=== PATIENT | female | born 1975 | race Caucasian/White ===

== ENCOUNTER 2018-07-10 06:25 | Observation (INO) | payer OTHER ==
[~2018-07-10] VITALS: Ht 167.6 cm; Wt 67.6 kg
[2018-07-10 07:33] VITALS: BP_SYST 105
== END 2018-07-10 15:04 | disposition home or self-care (01) ==
LOC: SPU 06:25
PROVIDERS: ADMIT Specialist; ATTEND Specialist
DX: O62.9 Abnormality of forces of labor, unspecified (principal); Z3A.37 37 weeks gestation of pregnancy
CPT/HCPCS: 59025; 81002-TC; G0378

== ENCOUNTER 2018-07-21 06:19 | Inpatient (IN) | payer OTHER ==
[~2018-07-21] VITALS: Ht 167.6 cm; Wt 68.0 kg
[2018-07-21] MEDS ORDERED: LR 1,000 ML IV SCH ×2 (06:25→09:21)
[2018-07-21] MEDS ORDERED: CLINDAMYCIN 600 mg/50mL D5W 50 ML IV ONE (06:30)
[2018-07-21 07:07] VITALS: BP_SYST 96
[2018-07-21 07:18] LABS: BASOPHILS % (AUTO) 0.6 % (0.0-2.0); HEMATOCRIT 27.8 % (36-48); HEMOGLOBIN 9.5 g/dL (12.0-16.0); LYMPHOCYTES # (AUTO) 1.5 K/uL (1.0-5.5); LYMPHOCYTES % (AUTO) 35.9 % (20.5-51.5); MEAN CORPUSCULAR HEMOGLOBIN 32 pg (27-31); MEAN CORPUSCULAR HGB CONC 34 % (32-36); MEAN CORPUSCULAR VOLUME 95 fL (79.0-98.0); MONOCYTES # (AUTO) 0.6 K/uL (0.0-1.0); MONOCYTES % (AUTO) 13.6 % (1.7-9.3); NEUTROPHILS % (AUTO) 48.9 % (40.0-70.0); PLATELET COUNT (AUTO) 183 K/uL (130-430); RED BLOOD CELL COUNT(AUTO) 2.92 MIL/uL (4.2-6.2); RED CELL DISTRIBUTION WIDTH 11.8 % (9.0-15.0); WHITE BLOOD COUNT (AUTO) 4.1 K/uL (4.8-10.8)
[2018-07-21] MEDS ORDERED: OXYTOCIN/0.9 % SODIUM CHLORIDE 20 UNITS/1,000 ML BAG IV ONE (07:50)
[2018-07-21] MEDS ORDERED: MORPHINE SULFATE 10MG/10ML PF AMP EP ONE (07:50)
[2018-07-21] MEDS ORDERED: NS IRRIG SOLN 1000 ML IR ONE (07:50)
[2018-07-21] MEDS ORDERED: ePHEDrine sulfate 50 MG/ML VIAL IVP ONE (07:50)
[2018-07-21] MEDS ORDERED: LR 1,000 ML IV.SOLN IV ONE (07:50)
[2018-07-21] MEDS ORDERED: CLINDAMYCIN 900 mg/50mL D5W 50 ML IV ONE ×3 (07:58→20:14)
[2018-07-21] MEDS ORDERED: KETOROLAC TROMETHAMINE 60 MG/2 ML VIAL IM PRN (08:30)
[2018-07-21] MEDS ORDERED: ONDANSETRON HCL 4 MG/2 ML VIAL IVP PRN (08:30)
[2018-07-21] MEDS ORDERED: NALOXONE HCL 0.4 MG/ML AMP (NARCAN) IVP PRN ×2 (08:30)
[2018-07-21] MEDS ORDERED: MORPHINE SULFATE 10MG/10ML PF AMP SP SCH (08:30)
[2018-07-21] MEDS ORDERED: NALBUPHINE HCL 10 MG/ML AMP IVP PRN (08:30)
[2018-07-21] MEDS ORDERED: fentaNYL CITRATE/PF 100 MCG/2 ML AMP IVP PRN ×2 (08:30)
[2018-07-21] MEDS ORDERED: DIPHENHYDRAMINE INJ 50 MG/ML VIAL IVP PRN (08:30)
[2018-07-21 09:15] VITALS: BP_SYST 105
[2018-07-21] MEDS ORDERED: OXYTOCIN/0.9 % SODIUM CHLORIDE 1,000 ML IV SCH (09:21)
[2018-07-21] MEDS ORDERED: SENNOSIDES/DOCUSATE SODIUM 1 TAB TABLET(SENOKOT-S) PO PRN (09:30)
[2018-07-21] MEDS ORDERED: HYDROcodone/ACETAMIN 5-325 MG TAB (NORCO/ VICODIN) PO PRN (09:30)
[2018-07-21] MEDS ORDERED: DIPH-TET-PERTUS Vaccine 0.5 ML VIAL (ADACEL) I.M. PRN (09:30)
[2018-07-21] MEDS ORDERED: MEASLES,MUMPS&RUBELLA VACC/PF 12500 UNIT/0.5 ML VIAL SUBQ PRN (09:30)
[2018-07-21] MEDS ORDERED: RHO(D) IMMUNE GLOBULIN/MALTOSE 1500 UNITS/1.3 ML (WINHRO) IM PRN (09:30)
[2018-07-21] MEDS ORDERED: LANOLIN 7 GM OINT. TP PRN (09:30)
[2018-07-21] MEDS ORDERED: BISACODYL 10 MG/SUPPOSITORY RC PRN (09:30)
[2018-07-21] MEDS ORDERED: CLINDAMYCIN 600 mg/50mL D5W 50 ML IV SCH (14:00)
[2018-07-21] MEDS: KETOROLAC TROMETHAMINE 30 MG VIAL IVP SCH ×2 (17:15→18:00)
[2018-07-21] MEDS: CLINDAMYCIN 900 mg/50mL D5W 50 ML IV SCH (20:00)
[2018-07-21] MEDS ORDERED: TEMAZEPAM 15 MG CAPSULE PO PRN (21:00)
[2018-07-22] MEDS: CLINDAMYCIN 900 mg/50mL D5W 50 ML IV SCH (01:15)
[2018-07-22] MEDS: KETOROLAC TROMETHAMINE 30 MG VIAL IVP SCH ×2 (05:49)
[2018-07-22 07:05] LABS: BASOPHILS % (AUTO) 0.2 % (0.0-2.0); EOSINOPHILS # (AUTO) 0.1 K/uL (0.0-0.4); EOSINOPHILS % (AUTO) 0.8 % (0.0-4.0); HEMATOCRIT 25.2 % (36-48); HEMOGLOBIN 8.4 g/dL (12.0-16.0); LYMPHOCYTES # (AUTO) 0.8 K/uL (1.0-5.5); LYMPHOCYTES % (AUTO) 12.8 % (20.5-51.5); MEAN CORPUSCULAR HEMOGLOBIN 32 pg (27-31); MEAN CORPUSCULAR HGB CONC 33 % (32-36); MEAN CORPUSCULAR VOLUME 95 fL (79.0-98.0); MONOCYTES # (AUTO) 0.5 K/uL (0.0-1.0); NEUTROPHILS # (AUTO) 5.2 K/uL (1.8-7.7); NEUTROPHILS % (AUTO) 78.2 % (40.0-70.0); PLATELET COUNT (AUTO) 146 K/uL (130-430); RED BLOOD CELL COUNT(AUTO) 2.64 MIL/uL (4.2-6.2); RED CELL DISTRIBUTION WIDTH 11.9 % (9.0-15.0)
[2018-07-22 07:06] LABS: WHITE BLOOD COUNT (AUTO) 6.6 K/uL (4.8-10.8)
[2018-07-22] MEDS: SIMETHICONE 80 MG TAB.CHEW PO PRN ×4 (08:15→20:56)
[2018-07-22] MEDS: DOCUSATE SODIUM 100 MG CAPSULE PO PRN (08:15)
[2018-07-22] MEDS: OXYCODONE/ACETAMINOPHEN 5-325 TABLET PO PRN ×3 (08:16→20:56)
[2018-07-22] MEDS: IBUPROFEN 600 MG TABLET PO SCH ×2 (12:41→18:01)
[2018-07-23] MEDS: IBUPROFEN 600 MG TABLET PO SCH ×4 (00:26→17:43)
[2018-07-23] MEDS: OXYCODONE/ACETAMINOPHEN 5-325 TABLET PO PRN ×2 (09:32→17:44)
[2018-07-23] MEDS: SIMETHICONE 80 MG TAB.CHEW PO PRN (17:45)
[2018-07-24] MEDS: IBUPROFEN 600 MG TABLET PO SCH ×2 (06:00)
[2018-07-24] MEDS: DOCUSATE SODIUM 100 MG CAPSULE PO PRN (07:57)
[2018-07-24] MEDS: OXYCODONE/ACETAMINOPHEN 5-325 TABLET PO PRN (07:58)
[2018-07-24] MEDS: SIMETHICONE 80 MG TAB.CHEW PO PRN (07:58)
== END 2018-07-24 09:30 | disposition home or self-care (01) | DRG 787 ==
LOC: SPU 06:19
PROVIDERS: ADMIT Specialist; ATTEND Specialist
PROC: 0UN90ZZ Release Uterus, Open Approach (ICD-10-PCS; 2018-07-21)
PROC: 10D00Z1 Extraction of Products of Conception, Low, Open Approach (ICD-10-PCS; principal; 2018-07-21 07:30)
DX: O34.211 Maternal care for low transverse scar from previous cesarean delivery (principal); R71.0 Precipitous drop in hematocrit; O36.63X0 Maternal care for excessive fetal growth, third trimester, not applicable or unspecified; O99.89 Other specified diseases and conditions complicating pregnancy, childbirth and the puerperium; N73.6 Female pelvic peritoneal adhesions (postinfective); Z3A.39 39 weeks gestation of pregnancy; Z37.0 Single live birth; Z88.0 Allergy status to penicillin; Z91.011 Allergy to milk products
CPT/HCPCS: 36415; 85025; 86592; 86886; 86900; 86901; 90715; 94760; J1200; J1885; J2274; J2590; J3490; J7120